=== PATIENT | male | born 1965 | race Caucasian/White ===

== ENCOUNTER 2021-06-14 08:36 | Inpatient (IN) ==
[2021-06-14 11:24] LABS: D Dimer 1040 ug/L FEU (0-500)
[2021-06-14] MEDS ORDERED: SODIUM CHLORIDE 0.9% 1000ML 1,000 ML IV SCH (11:25)
[2021-06-14] MEDS ORDERED: ACETAMINOPHEN 1,000 MG/100 ML VIAL IV STA (11:28)
--- NOTE | 2021-06-14 11:37 | Ultrasound Report ---
LEFT LOWER EXTREMITY VENOUS DOPPLER CLINICAL HISTORY: calf pain to llq COMPARISON STUDY: No previous studies for comparison. TECHNIQUE: Sonography of the deep venous system of the left lower extremity was performed. Compressi on and augmentation were evaluated. FINDINGS: The left common femoral, superficial femoral and popliteal veins were compressible. Augmen tation was normal. Note is made of deep venous thrombosis within one of 2 left posterior tibial veins . IMPRESSION: Deep venous thrombus within one of 2 left posterior tibial veins. ACT 112: Negative or not required by law. Electronically signed by: Brent Blankenship M.D. 06/14/2021 11:35 AM
[2021-06-14 11:40] LABS: Basophils # (auto) 0.01 K/uL (0-0.2); Basophils % (auto) 0.2 %; Eosinophils # (auto) 0.17 K/uL (0-0.5); Eosinophils % (auto) 3.5 %; Hematocrit (blood only) 42.3 % (42-52); Hemoglobin 14.8 g/dL (14.0-18.0); Immature Granulocytes # (auto) 0.01 K/uL (0.00-0.02); Immature Granulocytes % (auto) 0.2 %; Lymphocytes # (auto) 1.24 K/uL (1.2-3.4); Lymphocytes % (auto) 25.8 %; Mean Corpuscular Hemoglobin 32.3 pg (25-34); Mean Corpuscular Volume 92.4 fL (80-100); Monocytes # (auto) 0.58 K/uL (0.11-0.59); Monocytes % (auto) 12.1 %; Neutrophils % (auto) 58.2 %; Platelet Count 219 K/uL (130-400); RDW Coefficient of Variation 12.1 % (11.5-14.5); Red Blood Count 4.58 M/uL (4.7-6.1); White Blood Count 4.81 K/uL (4.8-10.8)
[2021-06-14 11:44] LABS: INR 0.9 (0.9-1.1); Partial Thromboplastin Time 25.3 Seconds (21.0-31.0); Prothrombin Time 9.6 Seconds (9.0-12.0)
[2021-06-14 11:47] LABS: Alanine Aminotransferase 17 U/L (12-78); Albumin Level 3.7 gm/dl (3.4-5.0); Aspartate Aminotransferase 31 U/L (15-37); Blood Urea Nitrogen 22 mg/dl (7-18); Calcium 9.1 mg/dl (8.5-10.1); Carbon Dioxide 28 mmol/L (21-32); Chloride 107 mmol/L (98-107); Creatinine Clr Calc Pharmacy 91.4 ml/min; Est GFR (African American) 98.3 ml/min; Est GFR (Non-African American) 84.8 ml/min; Glucose 96 mg/dl (70-99); Magnesium 2.2 mg/dl (1.8-2.4); Potassium 4.8 mmol/L (3.5-5.1); Sodium 138 mmol/L (136-145)
[2021-06-14 11:52] LABS: Albumin Globulin Ratio 0.9 (0.9-2); Alkaline Phosphatase 63 U/L (45-117); Bilirubin,Total 0.7 mg/dl (0.2-1); Globulin 4.1 gm/dl (2.5-4.0); Phosphorus 4.1 mg/dl (2.5-4.9); Total Protein 7.8 gm/dl (6.4-8.2); Troponin I < 0.015 ng/ml (0-0.045)
[2021-06-14] MEDS ORDERED: OPTIRAY 320 125ml IV ONE (12:12)
--- NOTE | 2021-06-14 12:22 | XRay Report ---
XR chest 1V portable CLINICAL HISTORY: Chest pain. COMPARISON STUDY: No previous studies for comparison. FINDINGS: Lung volumes are normal. There is no pneumothorax or pleural effusion. Calcified granuloma within the right midlung is noted. There is no consolidation or evidence for pulmonary edema. Cardiom ediastinal silhouette is unremarkable. Minimal left basilar opacity favors atelectasis. IMPRESSION: No acute cardiopulmonary findings. ACT 112: Negative or not required by law. Electronically signed by: Brent Blankenship M.D. 06/14/2021 12:21 PM
--- NOTE | 2021-06-14 12:55 | CT Scan Report ---
CT ANGIOGRAM OF THE CHEST COMBO; CT ANGIOGRAM OF THE ABDOMEN AND PELVIS CLINICAL HISTORY: Atypical chest pain. Crampy abdominal pain. Arm and leg pain. Paresthesias. COMPARISON STUDY: Chest x-ray dated 06/14/2021. TECHNIQUE: Unenhanced axial CT scan of the chest is performed. Subsequently, following the IV adminis tration of 120 cc of Optiray 320, CT angiogram of the chest, abdomen, and pelvis was performed from t he thoracic inlet to the proximal femora. Images are reviewed in the axial, sagittal, and coronal lisa gin. 3-D MIPS images are created and assessed. IV contrast was administered without complication. A d ose lowering technique was utilized adhering to the principles of ALARA. CT DOSE: 1427.35 mGy.cm FINDINGS: CHEST: Thyroid: Imaged portions of the thyroid gland are normal in size and attenuation. Thoracic aorta: No intramural hematoma is seen on the unenhanced series. The thoracic aorta is normal in course and caliber. The aortic arch demonstrates standard 3-vessel anatomy. No aneurysm or dissec tion is seen. The arch vessels are widely patent. Pulmonary vasculature: The pulmonary trunk is normal in caliber. Subsegmental pulmonary emboli are no denise at both lung bases. There are no filling defects seen within the main, lobar, or segmental pulmon emeka arteries. Heart: The heart is normal in size and without pericardial effusion. There is evidence carotid calcif ication of the left coronary artery. Lungs and pleural spaces: There is trace left pleural effusion. No airspace consolidation is seen typ ical for pneumonia. Dependent atelectasis is seen at the lung bases. A fat-containing Bochdalek herni a is noted on the right. There are scattered calcified granulomas. The trachea and central airways Ar e clear. Mediastinum: There is no mediastinal lymphadenopathy. Vivian: Prominent hilar nodes measure up to 11 mm in short axis. Axillae: There is no axillary lymphadenopathy. Bony thorax: No destructive bony lesions are identified. Degenerative change is noted in the shoulder s. ABDOMEN AND PELVIS: Liver: The contrast-enhanced liver is normal in size, contour, and attenuation. There is no intrahepa tic biliary ductal dilatation. The main portal veins appear patent. Gallbladder: Unremarkable. Spleen: Normal in size and attenuation noting heterogeneous arterial phase enhancement. Pancreas: Unremarkable. Adrenal glands: Unremarkable. Kidneys: The contrast enhanced kidneys are normal in size and without hydronephrosis. The kidneys enh ance symmetrically. Abdominal aorta and iliac arteries: The abdominal aorta is normal in course and caliber. The aorta an d iliac arteries are widely patent bilaterally. No dissection is seen. Major branches of the abdominal aorta: The celiac trunk, superior mesenteric, and inferior mesenteric arteries are widely patent. Hepatic arterial anatomy is conventional. The splenic artery is patent. 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 No Single bilateral renal arteries are widely patent. Bowel: There is no bowel obstruction. The appendix is well-visualized and normal. Peritoneum: There is no intraperitoneal free air or abdominal ascites. There is a large fat-containin g umbilical hernia. Lymphadenopathy: None. Pelvic viscera: The bladder, prostate, and seminal vesicles are normal as imaged. Skeletal structures: No destructive bony lesions are seen. IMPRESSION: 1. Unremarkable CT angiogram of the thoracic and abdominal aorta. 2. Subsegmental pulmonary emboli are noted at both lung bases. 3. Trace left pleural effusion. No airspace consolidation is seen typical for pneumonia. 4. Coronary artery atherosclerosis. 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 6. Otherwise unremarkable CT angiogram of the major branches of the abdominal aorta. 7. No acute infectious or inflammatory findings are seen in the abdomen or pelvis. 8. Additional findings as above. ACT 112: Negative or not required by law. Electronically signed by: Benjie Martins M.D. 06/14/2021 12:54 PM
[2021-06-14] MEDS ORDERED: ENOXAPARIN 1 MG/KG SQ SCH (13:30)
--- NOTE | 2021-06-14 13:46 | Emergency Department Note ---
Impression & Plan Left leg DVT, Bilateral pulmonary embolism, Pleuritic chest pain, Real time reverse transcriptase PCR positive for COVID-19 virus ED Provider Note Steve NAME: KIZZY SAUCEDA AGE: 56 SEX: M ARRIVES VIA: Walk-In INFORMANT: Patient, ED PROVIDER(S): Steve West MD CHIEF COMPLAINT: Leg pain PLAN: Disposition: Admit MEDICAL DECISION MAKING: The patient is a 56-year-old gentleman with a past medical history of hypertension, hyperlipidemia who presents emergency department for evaluation of acute onset left foot/calf/thigh pain that radiated into his pelvis and abdomen and to his chest last night that he describes as excruciating and has a calm and into this morning but still has pain with deep breaths and with ambulation. Patient denies any recent immobilization, surgeries, hormone treatments, prolonged travel. He does report he has been driving to [place] frequently which is no more than a 3-hour drive. 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 Denies any fevers, chills, cough, congestion, vomiting, diarrhea or urinary symptoms. He denies any family history of blood clots. On arrival the patient is well-appearing in no acute distress, afebrile stable vital signs. He has mild tenderness of the left mid calf without edema or discoloration. There is mild discomfort of the medial left thigh. Abdomen is benign. Given the patient is well-appearing we did agree to proceed with ultrasound of the left lower extremity but given his report of excruciating pain last night a D-dimer was also ordered. Subsequently, the patient's D-dimer was 1040 and so additional blood work was ordered and CT a of the chest and pelvis was performed. This did demonstrate bilateral subsegmental pulmonary emboli. Given the extent of the patient's clot burden reasonable to admit the patient for further management. The patient and his are in agreement with this plan. Hypercoagulable panel was ordered and treatment initiated with Lovenox. EKG without overt acute ischemia. Lab work was otherwise unremarkable with WBC, H/H and platelets within normal limits. Chemistry without metabolic acidosis. Electrolytes and LFTs unremarkable. Troponin negative/undetectable. Case was discussed with Dr. Quiros, [facility] hospitalist, who will evaluate the patient for admission. Covid-19 pcr did result positive, unclear significance at this time as patient had Covid-19 in November and completed 2 dose immunization series in March. Will defer to admitting team. Triage Nursing notes reviewed and agree them. Prior medical records reviewed` Vital Signs: reviewed and remarkable for no significant abnormalities Differential diagnosis: DVT, musculoskeletal, infection, joint effusion, trauma, lymphedema, idiopathic, CHF, as well as other pathologies. ER treatment provided: See below. Diagnostics interpreted by me: ECG: Sinus bradycardia, 58 bpm, no ectopy, no overt ST elevation or depression. Cardiac Monitoring: An order for continuous cardiac monitoring was placed and demonstrated sinus bradycardia, 58 bpm, no ectopy. Laboratory studies: See below Imaging studies: See below Consultation(s): Case was discussed with Dr. Quiros, [facility] hospitalist, who will evaluate the patient for admission. HPI: The patient is a 56-year-old gentleman with a past medical history of hypertension, hyperlipidemia who presents emergency department for evaluation of acute onset left foot/calf/thigh pain that radiated into his pelvis and abdomen and to his chest last night that he describes as excruciating and has a calm and into this morning but still has pain with deep breaths and with ambulation. Patient denies any recent immobilization, surgeries, hormone treatments, prolonged travel. He does report he has been driving to [place] frequently which is no more than a 3-hour drive. 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 Denies any fevers, chills, cough, congestion, vomiting, diarrhea or urinary symptoms. He denies any family history of blood clots. ROS: See above HPI for pertinent positives & negatives. A total of 10 systems reviewed and were otherwise negative. PAST MEDICAL HISTORY:See Below PAST SURGICAL HISTORY:See Below FAMILY HISTORY:See Below SOCIAL HISTORY:See Below HOME MEDICATIONS:See Below ALLERGIES:See Below VITALS:See Below PHYSICAL EXAMINATION: GENERAL: Awake, alert, well-appearing, in no distress HENT: Normocephalic, atraumatic. Oropharynx with dry mucous membranes and otherwise unremarkable.. EYES: Normal conjunctiva. Sclera non-icteric. NECK: Supple. No nuchal rigidity. FROM. No JVD. RESPIRATORY: Clear to auscultation. CARDIAC: Regular rate, normal rhythm. Extremities warm and well perfused. Pulses equal. ABDOMEN: Soft, non-distended. No tenderness to palpation. No rebound or guarding. No masses. RECTAL: Deferred. MUSCULOSKELETAL: Chest examination reveals no tenderness. The back is symmetrical on inspection without obvious abnormality. There is no CVA tenderness to palpation. No joint edema. LOWER EXTREMITIES: Calves are equal size bilaterally and non-tender. No edema. No discoloration. NEURO: Normal sensorium. No sensory or motor deficits noted. SKIN: No rash or jaundice noted. ED COURSE: Critical Care: I have personally spent greater than 35 minutes of critical care time in the direct management of this patient. This includes bedside care, interpretation of diagnostic studies, and testing, discussion with consultants, patient, and family members, and other required patient management activities. This 35 minutes is in excess of all separately billable procedures. NASREEN Ware MD Past Med/Surg History Medical History (Updated 06/14/21 @ 23:19 by Steve West MD) Allergic rhinitis Carotid artery plaque Elevated AST (SGOT) Hyperlipidemia Hyperplastic colon polyp Hypertension Leukopenia Sleep apnea Surgical History S/P tooth extraction S/P vasectomy Family History Father , 49 Myocardial infarction Parents Brother Myocardial infarction around age 53 Hyperlipidemia Family/Other Sleep apnea Grandfather (Paternal) , age 50 Alcohol abuse Mother , age 73 Coronary heart disease Parents Peripheral neuropathy Thyroid disorder Grandmother Stroke Denies family history of Ovarian cancer Prostate cancer Breast cancer Lung cancer Colorectal cancer Cancer Social History Smoking Status: Never smoker Second Hand Exposure: No; Hx Alcohol Use: Yes Hx Substance Use: No Preferred Language: Korean Communication Ability: Effective Visual Impairment: No Limitations Hearing Ability: Normal 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 Verified 05/17/21 13:56 Home Meds Home Medications Medication Instructions Recorded Confirmed omega-3 fatty acids 1,000 mg 1,000 mg PO DAILY 03/18/19 06/14/21 capsule (Fish Oil Concentrate) multivitamin 1 tab PO DAILY 02/23/21 06/14/21 Previous Rx's Medication Instructions Recorded lisinopril 5 mg tablet 5 mg PO DAILY #90 tab 05/17/21 Results & Data (ED) Vital Signs Vital Signs - 24 hr 06/14/21 08:42 06/14/21 09:51 06/14/21 12:00 Temperature 36.5 C Temperature Source Skin Pulse Rate 81 67 Pulse Rate [Right Radial] 74 Pulse Rate from SpO2 Sensor 67 Pulse Rhythm [Right Radial] Regular Pulse Strength [Right Radial] Normal Respiratory Rate 18 20 26 H Respiratory Effort / Characteristics Non-Labored Respiratory Depth Normal Respiratory Pattern Regular Blood Pressure 142/93 H 146/89 H Blood Pressure [Right Arm] 142/84 H Blood Pressure Mean 109 108 Blood Pressure Mean [Right Arm] 103 Blood Pressure Position [Right Arm] Pulse Oximetry 98 98 98 Oxygen Delivery Method Room Air Room Air Room Air Sepsis Recent Fever Within 48 Hours No Sepsis New/Unexplained Change in Mental Status No Sepsis Action Taken by Nursing No Action Required 06/14/21 12:30 06/14/21 13:00 06/14/21 13:33 Temperature Temperature Source Pulse Rate 70 61 69 Pulse Rate [Right Radial] Pulse Rate from SpO2 Sensor 69 63 69 Pulse Rhythm [Right Radial] Pulse Strength [Right Radial] Respiratory Rate 22 19 17 Respiratory Effort / Characteristics Respiratory Depth Respiratory Pattern Blood Pressure 131/89 128/90 Blood Pressure [Right Arm] Blood Pressure Mean 103 102 Blood Pressure Mean [Right Arm] Blood Pressure Position [Right Arm] Pulse Oximetry 98 99 99 Oxygen Delivery Method Room Air Room Air Room Air Sepsis Recent Fever Within 48 Hours Sepsis New/Unexplained Change in Mental Status Sepsis Action Taken by Nursing 06/14/21 13:40 06/14/21 13:50 06/14/21 14:00 Temperature Temperature Source Pulse Rate 66 59 L 61 Pulse Rate [Right Radial] Pulse Rate from SpO2 Sensor 67 59 L 62 Pulse Rhythm [Right Radial] Pulse Strength [Right Radial] Respiratory Rate 18 16 20 Respiratory Effort / Characteristics Respiratory Depth Respiratory Pattern Blood Pressure Blood Pressure [Right Arm] Blood Pressure Mean Blood Pressure Mean [Right Arm] Blood Pressure Position [Right Arm] Pulse Oximetry 99 99 99 Oxygen Delivery Method Room Air Room Air Room Air Sepsis Recent Fever Within 48 Hours Sepsis New/Unexplained Change in Mental Status Sepsis Action Taken by Nursing 06/14/21 14:10 06/14/21 14:20 06/14/21 14:30 Temperature Temperature Source Pulse Rate 69 66 73 Pulse Rate [Right Radial] Pulse Rate from SpO2 Sensor 69 Pulse Rhythm [Right Radial] Pulse Strength [Right Radial] Respiratory Rate 20 17 22 Respiratory Effort / Characteristics Respiratory Depth Respiratory Pattern Blood Pressure Blood Pressure [Right Arm] Blood Pressure Mean Blood Pressure Mean [Right Arm] Blood Pressure Position [Right Arm] Pulse Oximetry 98 Oxygen Delivery Method Room Air Room Air Sepsis Recent Fever Within 48 Hours Sepsis New/Unexplained Change in Mental Status Sepsis Action Taken by Nursing 06/14/21 14:52 06/14/21 15:00 06/14/21 15:10 Temperature Temperature Source Pulse Rate 80 74 73 Pulse Rate [Right Radial] Pulse Rate from SpO2 Sensor 77 73 72 Pulse Rhythm [Right Radial] Pulse Strength [Right Radial] Respiratory Rate 20 21 17 Respiratory Effort / Characteristics Respiratory Depth Respiratory Pattern Blood Pressure Blood Pressure [Right Arm] Blood Pressure Mean Blood Pressure Mean [Right Arm] Blood Pressure Position [Right Arm] Pulse Oximetry 99 99 99 Oxygen Delivery Method Room Air Room Air Room Air Sepsis Recent Fever Within 48 Hours Sepsis New/Unexplained Change in Mental Status Sepsis Action Taken by Nursing 06/14/21 15:15 06/14/21 15:30 Temperature Temperature Source Pulse Rate 87 Pulse Rate [Right Radial] 68 Pulse Rate from SpO2 Sensor 86 Pulse Rhythm [Right Radial] Pulse Strength [Right Radial] Respiratory Rate 20 20 Respiratory Effort / Characteristics Non-Labored Spontaneous Respiratory Depth Normal Respiratory Pattern Regular Blood Pressure 155/89 H Blood Pressure [Right Arm] 146/86 H Blood Pressure Mean 111 Blood Pressure Mean [Right Arm] 106 Blood Pressure Position [Right Arm] Sitting Pulse Oximetry 99 98 Oxygen Delivery Method Room Air Room Air Sepsis Recent Fever Within 48 Hours Sepsis New/Unexplained Change in Mental Status Sepsis Action Taken by Nursing Laboratory Data Result diagrams: 06/14/21 10:47 06/14/21 10:47 Lab Results 06/14/21 06/14/21 06/14/21 Range/Units 10:47 10:47 10:47 WBC 4.81 (4.8-10.8) K/uL RBC 4.58 L (4.7-6.1) M/uL Hgb 14.8 (14.0-18.0) g/dL Hct 42.3 (42-52) % MCV 92.4 (80-100) fL MCH 32.3 (25-34) pg MCHC 35.0 (32-36) g/dL RDW Std Deviation 41.0 (36.4-46.3) fL RDW Coeff of Gabbie 12.1 (11.5-14.5) % Plt Count 219 (130-400) K/uL MPV 9.0 (7.4-10.4) fL Immature Gran % (Auto) 0.2 % Neut % (Auto) 58.2 % Lymph % (Auto) 25.8 % [place] % (Auto) 12.1 % Eos % (Auto) 3.5 % Baso % (Auto) 0.2 % Neut # (Auto) 2.80 (1.4-6.5) K/uL Lymph # (Auto) 1.24 (1.2-3.4) K/uL [place] # (Auto) 0.58 (0.11-0.59) K/uL Eos # (Auto) 0.17 (0-0.5) K/uL Baso # (Auto) 0.01 (0-0.2) K/uL Immature Gran # (Auto) 0.01 (0.00-0.02) K/uL PT 9.6 (9.0-12.0) Seconds INR 0.9 (0.9-1.1) APTT 25.3 (21.0-31.0) Seconds PTT Ratio 1.0 D-Dimer 1040 H* (0-500) ug/L FEU Sodium 138 (136-145) mmol/L Potassium 4.8 (3.5-5.1) mmol/L Chloride 107 (98-107) mmol/L Carbon Dioxide 28 (21-32) mmol/L Anion Gap 3.0 (3-11) BUN 22 H (7-18) mg/dl Creatinine 0.99 (0.6-1.4) mg/dl Est Cr Clr Drug Dosing 91.4 ml/min Est GFR ( Amer) 98.3 ml/min Est GFR (Non-Af Amer) 84.8 ml/min BUN/Creatinine Ratio 22.0 H (10-20) Glucose 96 (70-99) mg/dl Calcium 9.1 (8.5-10.1) mg/dl Phosphorus 4.1 (2.5-4.9) mg/dl Magnesium 2.2 (1.8-2.4) mg/dl Total Bilirubin 0.7 (0.2-1) mg/dl AST 31 (15-37) U/L ALT 17 (12-78) U/L Alkaline Phosphatase 63 (45-117) U/L Troponin I < 0.015 (0-0.045) ng/ml Total Protein 7.8 (6.4-8.2) gm/dl Albumin 3.7 (3.4-5.0) gm/dl Globulin 4.1 H (2.5-4.0) gm/dl Albumin/Globulin Ratio 0.9 (0.9-2) COVID-19 Eval Order SARS-CoV-2 (PCR) (Negative) 06/14/21 06/14/21 Range/Units 13:18 13:18 WBC (4.8-10.8) K/uL RBC (4.7-6.1) M/uL Hgb (14.0-18.0) g/dL Hct (42-52) % MCV (80-100) fL MCH (25-34) pg MCHC (32-36) g/dL RDW Std Deviation (36.4-46.3) fL RDW Coeff of Gabbie (11.5-14.5) % Plt Count (130-400) K/uL MPV (7.4-10.4) fL Immature Gran % (Auto) % Neut % (Auto) % Lymph % (Auto) % [place] % (Auto) % Eos % (Auto) % Baso % (Auto) % Neut # (Auto) (1.4-6.5) K/uL Lymph # (Auto) (1.2-3.4) K/uL [place] # (Auto) (0.11-0.59) K/uL Eos # (Auto) (0-0.5) K/uL Baso # (Auto) (0-0.2) K/uL Immature Gran # (Auto) (0.00-0.02) K/uL PT (9.0-12.0) Seconds INR (0.9-1.1) APTT (21.0-31.0) Seconds PTT Ratio D-Dimer (0-500) ug/L FEU Sodium (136-145) mmol/L Potassium (3.5-5.1) mmol/L Chloride (98-107) mmol/L Carbon Dioxide (21-32) mmol/L Anion Gap (3-11) BUN (7-18) mg/dl Creatinine (0.6-1.4) mg/dl Est Cr Clr Drug Dosing ml/min Est GFR ( Amer) ml/min Est GFR (Non-Af Amer) ml/min BUN/Creatinine Ratio (10-20) Glucose (70-99) mg/dl Calcium (8.5-10.1) mg/dl Phosphorus (2.5-4.9) mg/dl Magnesium (1.8-2.4) mg/dl Total Bilirubin (0.2-1) mg/dl AST (15-37) U/L ALT (12-78) U/L Alkaline Phosphatase (45-117) U/L Troponin I (0-0.045) ng/ml Total Protein (6.4-8.2) gm/dl Albumin (3.4-5.0) gm/dl Globulin (2.5-4.0) gm/dl Albumin/Globulin Ratio (0.9-2) COVID-19 Eval Order Covid19 at [facility] [place] SARS-CoV-2 (PCR) POSITIVE A* (Negative) Administered Medications Enoxaparin Sodium (Enoxaparin 100 Mg/1ml Syr) 90 mg SQ Q12H JOSE MIGUEL Stop: 07/14/21 14:14 Last Admin: 06/14/21 15:11 Dose: 90 mg Documented by: [id number] Discontinued Medications Sodium Chloride (Nss 1000ml) 1,000 mls @ 999 mls/hr IV .Q1H1M JOSE MIGUEL Stop: 06/14/21 12:25 Last Infusion: 06/14/21 13:02 Dose: 0 mls/hr Documented by: [id number] Admin: 06/14/21 11:57 Dose: 999 mls/hr Documented by: [id number] Acetaminophen (Ofirmev) 1,000 mg in 100 mls @ 400 mls/hr IV NOW STA Stop: 06/14/21 11:42 Last Admin: 06/14/21 12:41 Dose: Not Given Documented by: [id number] Dexamethasone 6 mg/ Syringe 1.5 mls @ 1 mls/min IV NOW ONE Stop: 06/14/21 19:46 Last Admin: 06/14/21 20:24 Dose: 1 mls/min Documented by: [id number] Ioversol (Optiray 320 125ml) 120 ml IV ONCE ONE Stop: 06/14/21 12:13 Last Admin: 06/14/21 12:12 Dose: 120 ml Documented by: [id number] Imaging Data Radiologist's Impression: Venous Doppler Study 06/14/21 10:09 LEFT LOWER EXTREMITY VENOUS DOPPLER CLINICAL HISTORY: calf pain to llq COMPARISON STUDY: No previous studies for comparison. TECHNIQUE: Sonography of the deep venous system of the left lower extremity was performed. Compression and augmentation were evaluated. FINDINGS: The left common femoral, superficial femoral and popliteal veins were compressible. Augmentation was normal. Note is made of deep venous thrombosis within one of 2 left posterior tibial veins. IMPRESSION: Deep venous thrombus within one of 2 left posterior tibial veins. ACT 112: Negative or not required by law. Electronically signed by: Brent Blankenship M.D. 06/14/2021 11:35 AM Abdomen/Pelvis CTA 06/14/21 11:25 CT ANGIOGRAM OF THE CHEST COMBO; CT ANGIOGRAM OF THE ABDOMEN AND PELVIS CLINICAL HISTORY: Atypical chest pain. Crampy abdominal pain. Arm and leg pain. Paresthesias. COMPARISON STUDY: Chest x-ray dated 06/14/2021. TECHNIQUE: Unenhanced axial CT scan of the chest is performed. Subsequently, following the IV administration of 120 cc of Optiray 320, CT angiogram of the chest, abdomen, and pelvis was performed from the thoracic inlet to the proximal femora. Images are reviewed in the axial, sagittal, and coronal planes. 3-D MIPS images are created and assessed. IV contrast was administered without complication. A dose lowering technique was utilized adhering to the principles of ALARA. CT DOSE: 1427.35 mGy.cm FINDINGS: CHEST: Thyroid: Imaged portions of the thyroid gland are normal in size and attenuation. Thoracic aorta: No intramural hematoma is seen on the unenhanced series. The thoracic aorta is normal in course and caliber. The aortic arch demonstrates standard 3-vessel anatomy. No aneurysm or dissection is seen. The arch vessels are widely patent. Pulmonary vasculature: The pulmonary trunk is normal in caliber. Subsegmental pulmonary emboli are noted at both lung bases. There are no filling defects seen within the main, lobar, or segmental pulmonary arteries. Heart: The heart is normal in size and without pericardial effusion. There is evidence carotid calcification of the left coronary artery. Lungs and pleural spaces: There is trace left pleural effusion. No airspace consolidation is seen typical for pneumonia. Dependent atelectasis is seen at the lung bases. A fat-containing Bochdalek hernia is noted on the right. There are scattered calcified granulomas. The trachea and central airways Are clear. Mediastinum: There is no mediastinal lymphadenopathy. Vivian: Prominent hilar nodes measure up to 11 mm in short axis. Axillae: There is no axillary lymphadenopathy. Bony thorax: No destructive bony lesions are identified. Degenerative change is noted in the shoulders. ABDOMEN AND PELVIS: Liver: The contrast-enhanced liver is normal in size, contour, and attenuation. There is no intrahepatic biliary ductal dilatation. The main portal veins appear patent. Gallbladder: Unremarkable. Spleen: Normal in size and attenuation noting heterogeneous arterial phase enhancement. Pancreas: Unremarkable. Adrenal glands: Unremarkable. Kidneys: The contrast enhanced kidneys are normal in size and without hydronephrosis. The kidneys enhance symmetrically. Abdominal aorta and iliac arteries: The abdominal aorta is normal in course and caliber. The aorta and iliac arteries are widely patent bilaterally. No dissection is seen. Major branches of the abdominal aorta: The celiac trunk, superior mesenteric, and inferior mesenteric arteries are widely patent. Hepatic arterial anatomy is conventional. The splenic artery is patent. 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 No Single bilateral renal arteries are widely patent. Bowel: There is no bowel obstruction. The appendix is well-visualized and normal. Peritoneum: There is no intraperitoneal free air or abdominal ascites. There is a large fat-containing umbilical hernia. Lymphadenopathy: None. Pelvic viscera: The bladder, prostate, and seminal vesicles are normal as imaged. Skeletal structures: No destructive bony lesions are seen. IMPRESSION: 1. Unremarkable CT angiogram of the thoracic and abdominal aorta. 2. Subsegmental pulmonary emboli are noted at both lung bases. 3. Trace left pleural effusion. No airspace consolidation is seen typical for pneumonia. 4. Coronary artery atherosclerosis. 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 6. Otherwise unremarkable CT angiogram of the major branches of the abdominal aorta. 7. No acute infectious or inflammatory findings are seen in the abdomen or pelvis. 8. Additional findings as above. ACT 112: Negative or not required by law. Electronically signed by: Benjie Martins M.D. 06/14/2021 12:54 PM Chest CTA 06/14/21 11:25 CT ANGIOGRAM OF THE CHEST COMBO; CT ANGIOGRAM OF THE ABDOMEN AND PELVIS CLINICAL HISTORY: Atypical chest pain. Crampy abdominal pain. Arm and leg pain. Paresthesias. COMPARISON STUDY: Chest x-ray dated 06/14/2021. TECHNIQUE: Unenhanced axial CT scan of the chest is performed. Subsequently, following the IV administration of 120 cc of Optiray 320, CT angiogram of the chest, abdomen, and pelvis was performed from the thoracic inlet to the proximal femora. Images are reviewed in the axial, sagittal, and coronal planes. 3-D MIPS images are created and assessed. IV contrast was administered without complication. A dose lowering technique was utilized adhering to the principles of ALARA. CT DOSE: 1427.35 mGy.cm FINDINGS: CHEST: Thyroid: Imaged portions of the thyroid gland are normal in size and attenuation. Thoracic aorta: No intramural hematoma is seen on the unenhanced series. The thoracic aorta is normal in course and caliber. The aortic arch demonstrates standard 3-vessel anatomy. No aneurysm or dissection is seen. The arch vessels are widely patent. Pulmonary vasculature: The pulmonary trunk is normal in caliber. Subsegmental pulmonary emboli are noted at both lung bases. There are no filling defects seen within the main, lobar, or segmental pulmonary arteries. Heart: The heart is normal in size and without pericardial effusion. There is evidence carotid calcification of the left coronary artery. Lungs and pleural spaces: There is trace left pleural effusion. No airspace consolidation is seen typical for pneumonia. Dependent atelectasis is seen at the lung bases. A fat-containing Bochdalek hernia is noted on the right. There are scattered calcified granulomas. The trachea and central airways Are clear. Mediastinum: There is no mediastinal lymphadenopathy. Vivian: Prominent hilar nodes measure up to 11 mm in short axis. Axillae: There is no axillary lymphadenopathy. Bony thorax: No destructive bony lesions are identified. Degenerative change is noted in the shoulders. ABDOMEN AND PELVIS: Liver: The contrast-enhanced liver is normal in size, contour, and attenuation. There is no intrahepatic biliary ductal dilatation. The main portal veins appear patent. Gallbladder: Unremarkable. Spleen: Normal in size and attenuation noting heterogeneous arterial phase enhancement. Pancreas: Unremarkable. Adrenal glands: Unremarkable. Kidneys: The contrast enhanced kidneys are normal in size and without hydronephrosis. The kidneys enhance symmetrically. Abdominal aorta and iliac arteries: The abdominal aorta is normal in course and caliber. The aorta and iliac arteries are widely patent bilaterally. No d issection is seen. Major branches of the abdominal aorta: The celiac trunk, superior mesenteric, and inferior mesenteric arteries are widely patent. Hepatic arterial anatomy is conventional. The splenic artery is patent. 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 No Single bilateral renal arteries are widely patent. Bowel: There is no bowel obstruction. The appendix is well-visualized and normal. Peritoneum: There is no intraperitoneal free air or abdominal ascites. There is a large fat-containing umbilical hernia. Lymphadenopathy: None. Pelvic viscera: The bladder, prostate, and seminal vesicles are normal as imaged. Skeletal structures: No destructive bony lesions are seen. IMPRESSION: 1. Unremarkable CT angiogram of the thoracic and abdominal aorta. 2. Subsegmental pulmonary emboli are noted at both lung bases. 3. Trace left pleural effusion. No airspace consolidation is seen typical for pneumonia. 4. Coronary artery atherosclerosis. 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 6. Otherwise unremarkable CT angiogram of the major branches of the abdominal aorta. 7. No acute infectious or inflammatory findings are seen in the abdomen or pelvis. 8. Additional findings as above. ACT 112: Negative or not required by law. Electronically signed by: Benjie Martins M.D. 06/14/2021 12:54 PM Chest X-Ray 06/14/21 11:25 XR chest 1V portable CLINICAL HISTORY: Chest pain. COMPARISON STUDY: No previous studies for comparison. FINDINGS: Lung volumes are normal. There is no pneumothorax or pleural effusion. Calcified granuloma within the right midlung is noted. There is no consolidation or evidence for pulmonary edema. Cardiomediastinal silhouette is unremarkable. Minimal left basilar opacity favors atelectasis. IMPRESSION: No acute cardiopulmonary findings. ACT 112: Negative or not required by law. Electronically signed by: Brent Blankenship M.D. 06/14/2021 12:21 PM Discharge Plan Visit Data Chief Complaint: Pain (Generalized) Stated Complaint: LEFT SIDE PAIN AND NUMBNESS ED Provider: Steve West Discharge Problem: Left leg DVT, Bilateral pulmonary embolism, Pleuritic chest pain, Real time reverse transcriptase PCR positive for COVID-19 virus Patient Disposition: Admitted As Inpatient Discharge Instructions Interventions: ED Discharge Assessment Last Done: 06/14/21 17:36 Discharge Problem: Left leg DVT Qualifiers: Affected thrombotic vein of extremity: tibial Chronicity: acute Qualified Code(s): I82.442 - Acute embolism and thrombosis of left tibial vein
[2021-06-14] MEDS: ENOXAPARIN 100 MG/1ML SYR SQ SCH (15:11)
--- NOTE | 2021-06-14 16:07 | History & Physical Report ---
Date of Service June 14, 2021 Assessment & Plan (1) Bilateral pulmonary embolism: Plan: -Presumed secondary to #2 and provoked (Covid positive in addition to frequent and recent travel) -Lovenox 1 mg/kg subcu every 12 with plan to transition to oral anticoagulation therapy as an outpatient (given his age and active lifestyle, would be inclined to use Xarelto given its once daily dosing after starter pack. Discussed with patient that this needs to be taken on a full stomach) -Hypercoagulable panel was drawn in the ED. This may be falsely abnormal given active thrombus. PE/DVT appears to be provoked as outlined above. Would be inclined to treat with 6 months of anticoagulation therapy and if patient doing well, discontinue at that time and obtain a hypercoagulable panel then to determine if he needs long-term prevention dosing. Can refer to hematology as an outpatient if needed. -Decadron once daily dosing for pleuritic pain with [place] for breakthrough pain -Echocardiogram to assess LV function and for right-sided heart strain/intracardiac thrombus -Will initiate incentive spirometry (2) Left leg DVT: Plan: -See plan as outlined above (3) COVID: Plan: -Likely delta variant given for history of Covid and patient being s/p vaccination -Likely etiology behind #1 and 2 -Fortunately, patient asymptomatic -Decadron on board for pleuritic pain associated with #1 and not necessarily due to Covid -No need for remdesivir as patient not requiring oxygen. Will provide supportive care if he becomes symptomatic. -Will need to be in appropriate isolation and will need appropriate quarantine upon discharge (4) Splenic artery aneurysm: Plan: -Follow-up with vascular surgery as an outpatient. Briefly discussed and these likely never need intervention (5) Hypertension: Plan: -Continue lisinopril as prior to hospitalization (6) Hyperlipidemia: Plan: - admit -Treatment dose Lovenox on board -Prn medications include Tylenol, milk of mag, Mylanta, [place] -Plan of care discussed with Dr. Quiros History of Present Illness Chief Complaint: Left leg pain X 10 days, left-sided pleuritic pain X 1 day Primary Care Provider: Rad Dominguez MD Mr. Soliman is a 56-year-old white male with a past medical history of HTN and HLD. He presented to the ED complaining of left leg pain X 10 days and left- sided pleuritic pain X 1 day. Reports heel pain that started approximately 10 days ago. Over the course of the past 7 to 10 days, developed pain in the calf and subsequently in the thigh. Last evening, he developed pain in his left chest wall at the base of his rib cage that was worse with deep inhalation. Over the course of the evening and overnight hours, pain radiated into the left chest wall and left shoulder. Was described as dull but progressive in severity. Initially was a 1-2/10 but at the time of evaluation in the ED, had intensified to a 6/10. Tried Motrin without relief. Denied any associated shortness of breath or hemoptysis. Due to progression of his pain, presented to the ED where he was found to be hemodynamically stable. Pulse ox 99% on room air. Heart rate 69. Lab data showed an elevated D-dimer but otherwise normal CBC and metabolic panel. Given the elevated D-dimer, CTA of the chest was performed showing subsegmental bilateral PE without evidence of pulmonary infarction. Venous Doppler of the left lower extremity did show DVT in the tibial vein below the knee. His Covid is positive. Of importance, patient did have Covid in November. Was mildly symptomatic and then (major complaint was fatigue) and he recovered fully. Subsequently, he has been vaccinated in February and March with the Pfizer vaccine. Denies any personal or family history of DVT/PE or blood dyscrasia. Is up-to-date with his age-appropriate cancer screening (colonoscopy at age 50). Denies any recent surgeries. Does admit to significant travel as of lately. Reports a recent trip to [place] in early May and has been traveling to and from [place] (approximately 2-1/2 to 3-hour trip one-way) anywhere from 2-4 times a week. Allergies Allergy/AdvReac Type Severity Reaction Status Date / Time No Known Drug Allergies Allergy Unknown . Verified 05/17/21 13:56 Home Medications Medication Instructions Recorded Confirmed Type omega-3 fatty acids 1,000 mg 1,000 mg PO DAILY 03/18/19 06/14/21 History capsule (Fish Oil Concentrate) multivitamin 1 tab PO DAILY 02/23/21 06/14/21 History lisinopril 5 mg tablet 5 mg PO DAILY #90 tab 05/17/21 06/14/21 Rx Past Med/Surg History Medical History (Updated 06/14/21 @ 16:15 by Dennise Coello PA-C) Allergic rhinitis Carotid artery plaque Elevated AST (SGOT) Hyperlipidemia Hyperplastic colon polyp Hypertension Leukopenia Sleep apnea Surgical History S/P tooth extraction S/P vasectomy Family History Father , 49 Myocardial infarction Parents Brother Myocardial infarction around age 53 Hyperlipidemia Family/Other Sleep apnea Grandfather (Paternal) , age 50 Alcohol abuse Mother , age 73 Coronary heart disease Parents Peripheral neuropathy Thyroid disorder Grandmother Stroke Denies family history of Ovarian cancer Prostate cancer Breast cancer Lung cancer Colorectal cancer Cancer Social History Smoking Status: Never smoker Hx Alcohol Use: Yes Hx Substance Use: No Preferred Language: Kuwaiti Communication Ability: Effective Visual Impairment: No Limitations Hearing Ability: Normal 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 Denies fevers, chills, headache, nasal congestion, sore throat, cough, loss of taste/smell, shortness of breath, hemoptysis, palpitations, abdominal pain, nausea, vomiting, dysuria, hematuria, frequency, skin lesions or rashes. Physical Exam Physical Exam: General: Resting comfortably in his hospital bed. Does not appear ill or toxic. NAD. HEENT: Atraumatic, normocephalic. Buccal mucosa is moist and pink Neck: No JVD. Negative hepatojugular reflex Cardiac: RRR without obvious murmur, gallop or rub Lungs: CTA without W/R/R Abdomen: Normoactive X4. Soft and nontender in all quadrants. Extremities: No significant palpable cord. No obvious edema or erythema of the left lower extremity but tenderness upon palpation of the left calf. Positive Homans' sign. Peripheral pulses are intact and symmetrical bilaterally. Neuro: A&O X4 cranial nerves II through XII are grossly intact no focal neuro deficits Skin: No obvious skin lesions or rashes Results & Data Results & Data ([facility]) Vital Signs (Past 12 Hours) Vital Signs Temp Pulse Pulse Resp BP BP Pulse Ox 06/14/21 15:30 87 20 155/89 H 98 06/14/21 15:15 68 20 146/86 H 99 06/14/21 15:10 73 17 99 06/14/21 15:00 74 21 99 06/14/21 14:52 80 20 99 06/14/21 14:30 73 22 06/14/21 14:20 66 17 06/14/21 14:10 69 20 98 06/14/21 14:00 61 20 99 06/14/21 13:50 59 L 16 99 06/14/21 13:40 66 18 99 06/14/21 13:33 69 17 99 06/14/21 13:00 61 19 128/90 99 06/14/21 12:30 70 22 131/89 98 06/14/21 12:00 67 26 H 146/89 H 98 06/14/21 09:51 74 20 142/84 H 98 06/14/21 08:42 36.5 C 81 18 142/93 H 98 Laboratory Results Laboratory Results - last 24 hr 06/14/21 06/14/21 06/14/21 10:47 10:47 10:47 WBC 4.81 RBC 4.58 L Hgb 14.8 Hct 42.3 MCV 92.4 MCH 32.3 MCHC 35.0 RDW Std Deviation 41.0 RDW Coeff of Gabbie 12.1 Plt Count 219 MPV 9.0 Immature Gran % (Auto) 0.2 Neut % (Auto) 58.2 Lymph % (Auto) 25.8 [place] % (Auto) 12.1 Eos % (Auto) 3.5 Baso % (Auto) 0.2 Neut # (Auto) 2.80 Lymph # (Auto) 1.24 [place] # (Auto) 0.58 Eos # (Auto) 0.17 Baso # (Auto) 0.01 Immature Gran # (Auto) 0.01 PT 9.6 INR 0.9 APTT 25.3 PTT Ratio 1.0 D-Dimer 1040 H* LA PTT Screen Protein C Activity Protein S Activity Antithrombin III Activ Factor V Leiden Mutat Factor V Leiden Interp Sodium 138 Potassium 4.8 Chloride 107 Carbon Dioxide 28 Anion Gap 3.0 BUN 22 H Creatinine 0.99 Est Cr Clr Drug Dosing 91.4 Est GFR ( Amer) 98.3 Est GFR (Non-Af Amer) 84.8 BUN/Creatinine Ratio 22.0 H Glucose 96 Calcium 9.1 Phosphorus 4.1 Magnesium 2.2 Total Bilirubin 0.7 AST 31 ALT 17 Alkaline Phosphatase 63 Troponin I < 0.015 Total Protein 7.8 Albumin 3.7 Globulin 4.1 H Albumin/Globulin Ratio 0.9 Homocysteine Beta-2-GPI IgG Ab Beta-2-GPI IgM Ab Anti-Cardiolipin IgG Ab Anti-Cardiolipin IgM Ab COVID-19 Eval Order SARS-CoV-2 (PCR) Prothrombin Gene Mutate Prothromb Gene Comment 06/14/21 06/14/21 06/14/21 13:18 13:18 13:56 WBC RBC Hgb Hct MCV MCH MCHC RDW Std Deviation RDW Coeff of Gabbie Plt Count MPV Immature Gran % (Auto) Neut % (Auto) Lymph % (Auto) [place] % (Auto) Eos % (Auto) Baso % (Auto) Neut # (Auto) Lymph # (Auto) [place] # (Auto) Eos # (Auto) Baso # (Auto) Immature Gran # (Auto) PT INR APTT PTT Ratio D-Dimer LA PTT Screen Pending Protein C Activity Pending Protein S Activity Antithrombin III Activ Factor V Leiden Mutat Factor V Leiden Interp Sodium Potassium Chloride Carbon Dioxide Anion Gap BUN Creatinine Est Cr Clr Drug Dosing Est GFR ( Amer) Est GFR (Non-Af Amer) BUN/Creatinine Ratio Glucose Calcium Phosphorus Magnesium Total Bilirubin AST ALT Alkaline Phosphatase Troponin I Total Protein Albumin Globulin Albumin/Globulin Ratio Homocysteine Beta-2-GPI IgG Ab Beta-2-GPI IgM Ab Anti-Cardiolipin IgG Ab Anti-Cardiolipin IgM Ab COVID-19 Eval Order Covid19 at [facility] SARS-CoV-2 (PCR) POSITIVE A* Prothrombin Gene Mutate Prothromb Gene Comment 06/14/21 06/14/21 06/14/21 13:56 13:56 13:56 WBC RBC Hgb Hct MCV MCH MCHC RDW Std Deviation RDW Coeff of Gabbie Plt Count MPV Immature Gran % (Auto) Neut % (Auto) Lymph % (Auto) [place] % (Auto) Eos % (Auto) Baso % (Auto) Neut # (Auto) Lymph # (Auto) [place] # (Auto) Eos # (Auto) Baso # (Auto) Immature Gran # (Auto) PT INR APTT PTT Ratio D-Dimer LA PTT Screen Protein C Activity Protein S Activity Pending Antithrombin III Activ Pending Factor V Leiden Mutat Pending Factor V Leiden Interp Pending Sodium Potassium Chloride Carbon Dioxide Anion Gap BUN Creatinine Est Cr Clr Drug Dosing Est GFR ( Amer) Est GFR (Non-Af Amer) BUN/Creatinine Ratio Glucose Calcium Phosphorus Magnesium Total Bilirubin AST ALT Alkaline Phosphatase Troponin I Total Protein Albumin Globulin Albumin/Globulin Ratio Homocysteine Pending Beta-2-GPI IgG Ab Beta-2-GPI IgM Ab Anti-Cardiolipin IgG Ab Anti-Cardiolipin IgM Ab COVID-19 Eval Order SARS-CoV-2 (PCR) Prothrombin Gene Mutate Pending Prothromb Gene Comment Pending 06/14/21 06/14/21 13:56 13:56 WBC RBC Hgb Hct MCV MCH MCHC RDW Std Deviation RDW Coeff of Gabbie Plt Count MPV Immature Gran % (Auto) Neut % (Auto) Lymph % (Auto) [place] % (Auto) Eos % (Auto) Baso % (Auto) Neut # (Auto) Lymph # (Auto) [place] # (Auto) Eos # (Auto) Baso # (Auto) Immature Gran # (Auto) PT INR APTT PTT Ratio D-Dimer LA PTT Screen Protein C Activity Protein S Activity Antithrombin III Activ Factor V Leiden Mutat Factor V Leiden Interp Sodium Potassium Chloride Carbon Dioxide Anion Gap BUN Creatinine Est Cr Clr Drug Dosing Est GFR ( Amer) Est GFR (Non-Af Amer) BUN/Creatinine Ratio Glucose Calcium Phosphorus Magnesium Total Bilirubin AST ALT Alkaline Phosphatase Troponin I Total Protein Albumin Globulin Albumin/Globulin Ratio Homocysteine Beta-2-GPI IgG Ab Pending Beta-2-GPI IgM Ab Pending Anti-Cardiolipin IgG Ab Pending Anti-Cardiolipin IgM Ab Pending COVID-19 Eval Order SARS-CoV-2 (PCR) POSITIVE Prothrombin Gene Mutate Prothromb Gene Comment Diagnostic Findings CXR: IMPRESSION: No acute cardiopulmonary findings. CTA of the chest: IMPRESSION: 1. Unremarkable CT angiogram of the thoracic and abdominal aorta. 2. Subsegmental pulmonary emboli are noted at both lung bases. 3. Trace left pleural effusion. No airspace consolidation is seen typical for pneumonia. 4. Coronary artery atherosclerosis. 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 6. Otherwise unremarkable CT angiogram of the major branches of the abdominal aorta. 7. No acute infectious or inflammatory findings are seen in the abdomen or pelvis. 8. Additional findings as above. EKG: Sinus. Rate 60 bpm. Normal axis. Nonspecific ST/T wave changes but nonacute. Code Status & VTE Plan VTE Prophylaxis Plan VTE Prophylaxis will be ordered: Yes Supervising Physician Co-Signing Physician Notes Chart reviewed, discussed with ANA. Did not see patient to avoid Covid exposure. Agree with her note above. Patient initially presenting with extremity pain. Found to have a tibial DVT along with multiple PEs. Patient was also tested positive for Covid, which is likely etiology. Patient was started on Lovenox. Check 2D echo. If patient does well, can transition over to NOAC prior to discharge. PG Care Time/CCT Total # of Minutes Spent Total Time Spent with Patient: Total time spent is greater than 50% in coordination of care (as documented) at patient's floor/unit and/or counseling patient: [place] [address] Initial Inpt Care Lvl 3 Patient Type New Medical Decision Making High Complexity Diagnoses Bilateral pulmonary embolism I26.99 Left leg DVT I82.402 COVID U07.1 Splenic artery aneurysm I72.8 Hypertension I10 Hyperlipidemia E78.5
[2021-06-14] MEDS ORDERED: MAGNESIUM HYDROXIDE SUSP 30 ML UDC PO PRN (18:45)
[2021-06-14] MEDS ORDERED: POLYETHYLENE (MIRALAX) 17 GM PACK PO PRN (18:45)
[2021-06-14] MEDS ORDERED: ZOLPIDEM TARTRATE 5 MG TAB PO PRN (18:45)
[2021-06-14] MEDS ORDERED: ACETAMINOPHEN 325 MG TAB PO PRN (18:45)
[2021-06-14] MEDS ORDERED: ONDANSETRON INJ 2 MG/ML 2 ML VIAL IV PRN (18:45)
[2021-06-14] MEDS ORDERED: ALUMINUM/MAGNESIUM SUSP 30 ML UDC PO PRN (18:45)
[2021-06-14] MEDS ORDERED: HYDROCODONE/ACETAMOPHEN 5/325MG TAB PO PRN (18:45)
[2021-06-14] MEDS ORDERED: DEXAMETHASONE SOD INJ 4 MG/ML VIAL IV STA (19:11)
[2021-06-14] MEDS ORDERED: dexAMETHasone 6 MG in SYRINGE 0 ML IV ONE (19:45)
[2021-06-15] MEDS: ENOXAPARIN 100 MG/1ML SYR SQ SCH (01:56)
--- NOTE | 2021-06-15 05:58 | Electrocardiogram Report ---
Test Reason : Blood Pressure : / mmHG Vent. Rate : 058 BPM Atrial Rate : 058 BPM P-R Int : 148 ms QRS Dur : 094 ms QT Int : 402 ms P-R-T Axes : 040 022 017 degrees QTc Int : 394 ms Sinus bradycardia Incomplete right bundle branch block Borderline ECG No previous ECGs available Confirmed by Krzysztof Lucero ([id number]) on 06/15/2021 5:58:37 AM Referred By: REFERRED SELF Confirmed By:Krzysztof Lucero
[2021-06-15 07:59] LABS: Hematocrit (blood only) 42.5 % (42-52); Hemoglobin 14.9 g/dL (14.0-18.0); Immature Granulocytes # (auto) 0.01 K/uL (0.00-0.02); Immature Granulocytes % (auto) 0.2 %; Lymphocytes # (auto) 0.72 K/uL (1.2-3.4); Lymphocytes % (auto) 12.2 %; Mean Corpuscular Hemoglobin 32.3 pg (25-34); Mean Corpuscular Hgb Conc 35.1 g/dL (32-36); Monocytes # (auto) 0.23 K/uL (0.11-0.59); Monocytes % (auto) 3.9 %; Neutrophils # (auto) 4.95 K/uL (1.4-6.5); Neutrophils % (auto) 83.7 %; Platelet Count 234 K/uL (130-400); RDW Coefficient of Variation 11.9 % (11.5-14.5); RDW Standard Deviation 40.3 fL (36.4-46.3); Red Blood Count 4.62 M/uL (4.7-6.1); White Blood Count 5.91 K/uL (4.8-10.8)
[2021-06-15 08:25] LABS: BUN Creatinine Ratio 19.1 (10-20); Calcium 9.3 mg/dl (8.5-10.1); Creatinine Clr Calc Pharmacy 105.3 ml/min; Est GFR (African American) 112.4 ml/min; Est GFR (Non-African American) 96.9 ml/min; Magnesium 2.1 mg/dl (1.8-2.4); Potassium 4.8 mmol/L (3.5-5.1)
[2021-06-15] MEDS ORDERED: dexAMETHasone 6 MG in SYRINGE 0 ML IV SCH (09:00)
[2021-06-15] MEDS ORDERED: lisinopril 5 MG TAB PO SCH (09:00)
[2021-06-15] MEDS ORDERED: RIVAROXABAN 15 MG TAB PO SCH ×2 (12:00)
--- NOTE | 2021-06-15 17:43 | Discharge Summary ---
Date of Service June 15, 2021 Admission HPI Per Admitting Provider Mr. Soliman is a 56-year-old white male with a past medical history of HTN and HLD. He presented to the ED complaining of left leg pain X 10 days and left- sided pleuritic pain X 1 day. Reports heel pain that started approximately 10 days ago. Over the course of the past 7 to 10 days, developed pain in the calf and subsequently in the thigh. Last evening, he developed pain in his left chest wall at the base of his rib cage that was worse with deep inhalation. Over the course of the evening and overnight hours, pain radiated into the left chest wall and left shoulder. Was described as dull but progressive in severity. Initially was a 1-2/10 but at the time of evaluation in the ED, had intensified to a 6/10. Tried Motrin without relief. Denied any associated shortness of breath or hemoptysis. Due to progression of his pain, presented to the ED where he was found to be hemodynamically stable. Pulse ox 99% on room air. Heart rate 69. Lab data showed an elevated D-dimer but otherwise normal CBC and metabolic panel. Given the elevated D-dimer, CTA of the chest was performed showing subsegmental bilateral PE without evidence of pulmonary infarction. Venous Doppler of the left lower extremity did show DVT in the tibial vein below the knee. His Covid is positive. Of importance, patient did have Covid in November. Was mildly symptomatic and then (major complaint was fatigue) and he recovered fully. Subsequently, he has been vaccinated in February and March with the Pfizer vaccine. Denies any personal or family history of DVT/PE or blood dyscrasia. Is up-to-date with his age-appropriate cancer screening (colonoscopy at age 50). Denies any recent surgeries. Does admit to significant travel as of lately. Reports a recent trip to [place] in early May and has been traveling to and from [place] (approximately 2-1/2 to 3-hour trip one-way) anywhere from 2-4 times a week. Principal Diagnosis Pulmonary embolism Covid-19 Discharge Exam Constitutional WD/WN, vitals as above Eyes EOM intact bilaterally; no conjunctival abnormality ENMT external ear and nose normal, oropharynx normal Neck trachea midline, no thyromegaly normal visual inspection Respiratory normal respiratory effort, lungs clear to auscultation no respiratory distress Cardiovascular RRR, no murmur, no edema Gastrointestinal (Abdomen) Inspection/Auscultation: abdomen normal to inspection; abdomen not distended Musculoskeletal no cyanosis or clubbing, extremities motor strength 5/5 Skin no rashes, warm and dry Neurologic moves all extremities and awake Psychiatric Orientation: alert, oriented to person and cooperative Discharge Data Allergies Allergy/AdvReac Type Severity Reaction Status Date / Time No Known Drug Allergies Allergy Unknown . Verified 05/17/21 13:56 Consultations 06/14/21 13:38 ED Decision to Admit Stat Ordered Studies 06/14/21 10:09 US venous doppler LE LT Stat 06/14/21 11:25 CT angio abdomen pelvis w con Stat CT angio chest dissec wo/w con Stat Hospital Course (1) Bilateral pulmonary embolism: Presumed secondary to #2 and provoked (Covid positive in addition to frequent and recent travel). - Hypercoagulable panel was drawn in the ED. This may be falsely abnormal given active thrombus. PE/DVT appears to be provoked as outlined above. Would be inclined to treat with 6 months of anticoagulation therapy and if patient doing well, discontinue at that time and obtain a hypercoagulable panel then to determine if he needs long-term prevention dosing. Can refer to hematology as an outpatient if needed. - Discharged on Xarelto given its once daily dosing after starter pack. Discussed with patient that this needs to be taken on a full stomach. - Sent on 3 more days of prednisone for pleuritic chest pain. (2) Left leg DVT: - See plan as outlined above (3) COVID: -Likely delta variant given for history of Covid and patient being s/p vaccination -Likely etiology behind #1 and 2 -Fortunately, patient asymptomatic - No need for remdesivir as patient not requiring oxygen. Will provide supportive care if he becomes symptomatic. - Will need to be in appropriate isolation and will need appropriate quarantine upon discharge. Discussed with patient and family. (4) Splenic artery aneurysm: -Follow-up with vascular surgery as an outpatient. Briefly discussed and these likely never need intervention (5) Hypertension: -Continue lisinopril as prior to hospitalization (6) Hyperlipidemia: - admit -Treatment dose Lovenox on board -Prn medications include Tylenol, milk of mag, Mylanta, [place] -Plan of care discussed with Dr. Quiros Total Time Total Time Spent Total Time Spent (In Minutes): 35 Discharge Plan Discharge Items Patient Disposition: Home - Self-Care Reason For Visit: DVT/PE AND COVID POSITIVE Discharge Diagnosis: 1. Scattered bilateral Pulmonary Emboli (clots in the lung) 2. Deep Vein Thrombosis (DVT) left leg (clot in the leg) 3. Covid Positive (without symptoms) Activity: As commented below Activity Comment: light activity-- advance to full activity as tolerated Non-emergency contact: Primary Care Provider Call non-emergency contact if: you have any medication questions and your symptoms worsen Follow-up/Referrals: Rad Dominguez MD [Primary Care Provider] - Raul Erwin MD [Physician] - Diet: Regular Addtl Attending Provider Instructions: - You were hospitalized for a DVT of the left Leg with scattered pulmonary emboli (see description as mentioned above). - These are thought to be provoked because of the Covid positive test. In addition, your frequent and recent travel may have contributed to clot formation - You were treated with Lovenox while in house and are being discharged on Xarelto (which is a blood thinner). A started pack has been prescribed (which is 15mg twice a day for 21 days and then 20mg daily). After you complete the starter pack, you NEED TO GET SUBSEQUENT PRESCRIPTIONS FROM YOUR PCP!!!! - I would be inclined to repeat venous Doppler in 6 months and if DVT resolved, consider stopping Blood thinner all together to obtain a hypercoaguable panel (as the one done in the ED may be skewed just from the acute/active clot). If positive, would recommend lifelong blood thinner but PREVENTION dosing (rather than treatment dosing). This is at the discretion of your PCP - Coincidentally, you were found to have a 5mm splenic artery aneurysm. I did d iscuss this with vascular who will see you as an outpatient. Dr. Erwin's office was given your information and will be calling you with an appointment date and time - Given the Covid positive test: you need to remain in quarantine for 10 days from day of test (06/14/21) given the fact that you are without symptoms so we can't say from symptoms onset. Your and anyone that has been around you (</= 6 feet for >/=15 min) needs to quarantine x 14 days - Given your recent history of covid and the fact that you have been vaccinated, I suspect that this is the delta varriant and also the reason as to why you are without symptoms - Take prednisone daily x 3 more days (to help with the pleuritic like chest pain) - if your symptoms get worse, return to the ED - follow up with your PCP: 7-10 days Pending Studies at Discharge: Yes Studies:: Hypercoagulable panel echocardiogram Stand-Alone Forms: My [facility] Medications and DC Order Prescriptions: New Xarelto DVT-PE Treat 30d Start 15 mg (42)- 20 mg (9) tablets,dose pack See Rx Instructions .ROUTE .COMPLEX Qty: 51 RF: 0 prednisone 20 mg tablet 40 mg PO DAILY 3 Days Qty: 6 RF: 0 Continued lisinopril 5 mg tablet 5 mg PO DAILY Qty: 90 RF: 3 omega-3 fatty acids [Fish Oil Concentrate] 1,000 mg capsule 1,000 mg PO DAILY RF: 0 multivitamin Tablet 1 tab PO DAILY RF: 0 Discharge Orders: Discharge Order (Routine); Ordered 06/15/21 Ordered By: Dennise Vicente/Other Patient Handouts: 2019-nCoV, COVID-19 Home Care, DVT Dc, Embolism Pulmonary Dc Admission Data Admit Date/Time: 06/14/21 15:59 Attending Provider: Wero Sharma Admit Provider: Delvin Quiros Primary Care Provider: Rad Dominguez Other Providers: Wero Sharma Other Interventions: Discharge Summary Assessment (RN) Last Done: 06/15/21 10:10 Coding Level of Care Code D/C DAY MANAGEMENT >30 MINS Diagnoses Bilateral pulmonary embolism I26.99 Left leg DVT I82.442 Affected thrombotic vein of extremity: tibial Chronicity: acute COVID U07.1 Splenic artery aneurysm I72.8 Hypertension I10 Hyperlipidemia E78.5
--- NOTE | 2021-06-15 22:50 | XCELERA ---
[id number]
[2021-06-18 00:52] LABS: Anti-Thrombin III Activity 78 % normal (80-135); Protein S Functional(Activity) 80 % (70-150)
[2021-06-18 08:16] LABS: Anti Cardiolipin Ab IgG <2.0 GPL-U/mL; Anti Cardiolipin Ab IgM 2.4 MPL-U/mL; B2 Glycoprotein IgG <2.0 U/mL (<20.0)
[2021-06-21 07:12] LABS: PTT LA Screen 30 sec (<=40)
== END 2021-06-15 13:03 | disposition home or self-care (01) | DRG 299 ==
LOC: ED 08:36 → 2E 15:59 → SUATTDRO 15:59 → 2E 17:36
DX: I77.9 Disorder of arteries and arterioles, unspecified; I10 Essential (primary) hypertension; U07.1 COVID-19; E78.5 Hyperlipidemia, unspecified; Z82.49 Family history of ischemic heart disease and other diseases of the circulatory system; I82.402 Acute embolism and thrombosis of unspecified deep veins of left lower extremity; I26.94 Multiple subsegmental thrombotic pulmonary emboli without acute cor pulmonale